=== PATIENT | male | born 1955 | race Caucasian/White ===

== ENCOUNTER 2024-12-01 16:20 | Emergency (ER) | payer MEDICARE, OTHER ==
[2024-12-01] MEDS: Amoxicillin/Clavulanate K 875-125 MG Tab PO ONE (17:41)
== END 2024-12-01 17:27 | disposition home or self-care (01) ==
LOC: VM.ED 16:20
DX: S50.811A Abrasion of right forearm, initial encounter (principal); L03.113 Cellulitis of right upper limb; Z79.899 Other long term (current) drug therapy; W55.01XA Bitten by cat, initial encounter
CPT/HCPCS: 99283; A9270; 99284